=== PATIENT | male | born 1985 | race Caucasian/White ===

== ENCOUNTER 2018-03-16 16:34 | Emergency (ER) | payer BC, OTHER ==
[~2018-03-16 16:34] MED LIST: ISOVUE-370 76%-LOCM 1 ML ONE
[2018-03-16 18:17] LABS: #Eosinphils 0.1 thou/uL (0.0-0.7); #Lymphocytes 1.8 thou/uL (1.20-3.40); #Monocytes 1.5 thou/uL (0.11-0.59); #Neutrophils 9.6 thou/uL (1.40-6.50); %Basophils 0.4 % (0.0-1.0); %Eosinophils 0.7 % (0.0-10.0); %Lymphocytes 13.9 % (21.0-51.0); %Monocytes 11.7 % (0.0-10.0); %Neutrophils 73.3 % (42.0-75.0); Hemoglobin 16.4 g/dL (14.0-18.0); Mean Corpuscular HGB CONC 33.5 g/dL (32.0-36.0); Mean Corpuscular Hemoglobin 28.9 pg (27.0-31.0); Mean Corpuscular Volume 86.1 fL (78.0-98.0); Mean Platelet Volume 9.5 fL (7.4-10.4); Platelet Count 253 thou/uL (130-400); RBC Distribution Width 11.9 % (11.5-14.5); Red Blood Cell (RBC) Count 5.67 mill/uL (4.70-6.10)
[2018-03-16] MEDS ORDERED: Ondansetron PF 4 MG/2 ML Vial ONE (18:20)
[2018-03-16] MEDS ORDERED: Morphine 4 MG/ML VIAL ONE ×2 (18:22→20:07)
[2018-03-16 18:36] LABS: Anion Gap 15 mmol/L (10-20); BUN (Urea Nitrogen) 13 mg/dL (8.9-20.6); Calc. Creatinine Clearance 0 mL/min (70-130); Calcium 9.8 mg/dL (7.8-10.44); Carbon Dioxide 23 mmol/L (22-29); Chloride 103 mmol/L (98-107); Estimated GFR-MDRD Greater than 90; Glucose 88 mg/dL (70-105); Sodium 137 mmol/L (136-145)
--- NOTE | 2018-03-16 19:10 | CT ---
CT SOFT TISSUES OF THE NECK WITH IV CONTRAST: 03/16/18 INDICATION: Concern for tonsillar abscess. FINDINGS: There is enlargement of the palatine tonsils bilaterally. There is a 2.4 x 2.6 x 2.9 cm left peritons illar abscess causing some mild mass effect on the nasopharynx and upper oropharynx. There is enlarge d lymph nodes within both aspects of the upper neck. The largest seem was in left level IIA position measuring 1.4 cm. The prevertebral space appears within normal limits. The lung apices are clear. Thy roid, submandibular and parotid glands are normal appearing. There is mucous retention cysts within t he maxillary sinuses. The visualized intracranial contents are unremarkable appearing. No definite acute osseous abnormality is evident. The osseous central canal appears preserved. IMPRESSION: 1. Large left peritonsillar abscess with bilateral tonsillitis. 2. Enlargement of the upper neck lymph nodes is likely reactive in nature. 3. Mucous retention cysts within the maxillary sinuses. POS: [facility]
[2018-03-16] MEDS ORDERED: Benzocaine 20% Spray 60 ML CAN ONE (19:29)
[2018-03-16] MEDS ORDERED: Lidocaine 1% w/Epinephrine 1:100K 20 ML VIAL ONE (20:24)
[2018-03-16] MEDS ORDERED: Clindamycin/D5W 600 mg/50 ml Premix Bag ONE ×2 (20:41→21:03)
[2018-03-16] MEDS ORDERED: Dexamethasone 10 MG/ML VIAL ONE ×2 (20:42→21:32)
[2018-03-16] MEDS ORDERED: Sodium Chloride 0.9% 100 ML ONE (22:04)
[2018-03-16] MEDS ORDERED: cefTRIAXone\\ROCEPHIN 1 GM VIAL ONE (22:04)
--- NOTE | 2018-03-17 01:24 | CON ---
DATE OF CONSULTATION: 03/16/2018 The patient seen in consultation for tonsil abscess. BRIEF HISTORY: This is a 32-year-old male who had a 5-day history of sore throat, first episode of s ore throat many years. He reports this progressed apart where he had hard time swallowing liquids us ing the [facility] and was directed to the emergency room. There, a CAT scan of the neck was performed which confirmed bilateral follicular tonsillitis with intratonsillar abscesses on the left side. PAST MEDICAL HISTORY: None. PAST SURGICAL HISTORY: None. ALLERGIES: No known drug allergies. MEDICATIONS: None. REVIEW OF SYSTEMS: Positive fevers, chills. Cardiovascular: No chest pain or shortness of breath. Pulmonary: No cough or wheeze. PHYSICAL EXAMINATION: GENERAL: The patient is resting fairly comfortably in bed, mild amount of trismus to about 2 cm. HEENT: Oral cavity and oropharynx show bilateral follicular tonsillitis and edema in the left tonsil pillar and peritonsillar area. Nasal cavity congested. NECK: Subtle lymphadenopathy bilateral level 2, mildly tender, nonfluctuant. CT scan of the neck was reviewed, which confirms the above findings. PROCEDURE: At the bedside, 1% lidocaine with 1:100,000 epinephrine was injected into the left anteri or tonsillar pillar. Following this, an 18-gauge needle was used to make multiple passes. A total o f 4 mL of purulent material was suctioned from the tonsil and peritonsillar space area. ASSESSMENT: 1. Left peritonsillar abscess. 2. Bilateral follicular acute tonsillitis. PLAN: The patient received IV Decadron as well as IV Rocephin and IV clindamycin. Symptomatically, he reports he is feeling better now. We are going to allow for discharge on oral Augmentin 875 mg tw ice daily for 10 days as well as Ultram for pain. He will follow up with me in clinic on Sunday.
== END 2018-03-16 23:05 | disposition home or self-care (01) ==
LOC: ERS 16:34
DX: J36 Peritonsillar abscess (principal); F17.210 Nicotine dependence, cigarettes, uncomplicated
CPT/HCPCS: 42700; 70491; 80048; 85025; 96365; 96367; 96375; 96376; J0696; J1100; J2001; J2270; J2405; J3490; J7050

== ENCOUNTER 2019-09-20 19:06 | Emergency (ER) | payer OTHER, SELFPAY ==
--- NOTE | 2019-09-20 20:09 | RAD ---
LEFT ANKLE THREE VIEWS: 09/20/19 INDICATION: History of fall with left ankle injury. FINDINGS: Ankle mortise is preserved. Talar dome is normal appearing. Visualized hindfoot appears intact. Mild enthesopathic changes seen of the posterior calcaneus. No acute fracture or subluxation is evident. IMPRESSION: No acute osseous abnormality. POS: [facility]
--- NOTE | 2019-09-20 20:12 | RAD ---
LEFT FOOT THREE VIEWS: 09/20/19 INDICATION: History of fall with left foot pain. FINDINGS: Lisfranc alignment appears preserved. No acute fracture or subluxation is evident. Enthesopathic melvin ges seen off the posterior calcaneus. IMPRESSION: No acute osseous abnormality. POS: [facility]
== END 2019-09-20 20:57 | disposition home or self-care (01) ==
LOC: ERS 19:06
DX: S93.402A Sprain of unspecified ligament of left ankle, initial encounter (principal); F17.210 Nicotine dependence, cigarettes, uncomplicated; W17.89XA Other fall from one level to another, initial encounter; Y93.39 Activity, other involving climbing, rappelling and jumping off